=== PATIENT | female | born 1970 | race Hispanic/Latino ===

== ENCOUNTER 2019-09-19 21:55 | Inpatient (IN) | payer OTHER ==
[~2019-09-19] VITALS: Ht 157.5 cm; Wt 113.9 kg
[~2019-09-19 21:55] MED LIST: ATOR20TA65 PO; INSU3INS5 SQ; LISI2.5T2 PO; METO5 PO
[2019-09-19 22:13] LABS: BASOPHILS % (AUTO) 0.3 % (0.0-5.0); EOSINOPHILS % (AUTO) 1.5 % (0.0-8.0); HEMATOCRIT 37.5 % (36-48); LYMPHOCYTES % (AUTO) 30.1 % (21.0-51.0); MEAN CORPUSCULAR HEMOGLOBIN 30.2 pg (27.0-33.0); MEAN CORPUSCULAR HGB CONC 33.6 g/dL (32.0-36.0); MEAN CORPUSCULAR VOLUME 89.9 fL (79-99); MONOCYTES % (AUTO) 9.2 % (3.0-13.0); NEUTROPHILS % (AUTO) 58.6 % (40.0-77.0); PLATELET COUNT (AUTO) 387 K/uL (130-400); RED BLOOD CELL COUNT(AUTO) 4.17 MIL/uL (4.00-5.50); WHITE BLOOD COUNT (AUTO) 7.3 K/uL (4.8-10.8)
[2019-09-19 22:24] LABS: CREATININE 0.9 mg/dL (0.5-1.5)
[2019-09-19 22:29] LABS: ALBUMIN 3.9 g/dL (3.5-5.0); BILIRUBIN,TOTAL 0.2 mg/dL (0.2-1.0); TOTAL PROTEIN, SERUM 8.2 g/dL (6.0-8.3)
[2019-09-19] MEDS ORDERED: NITROGLYCERIN 1GM/1 INCH PACKET TD ONE (22:30)
[2019-09-19 22:32] LABS: HCG,QUAL RESULT NEGATIVE (NEGATIVE)
[2019-09-19 22:35] LABS: AMPHET/METH SCREEN,URINE NEGATIVE (NEGATIVE); BARBITURATE SCREEN, URINE NEGATIVE (NEGATIVE); BENZODIAZEPINES SCREEN,URINE NEGATIVE (NEGATIVE); CANNABINOID SCREEN,URINE NEGATIVE (NEGATIVE); COCAINE SCREEN,URINE NEGATIVE (NEGATIVE); OPIATE SCREEN,URINE NEGATIVE (NEGATIVE); PHENCYCLIDINE SCREEN,URINE NEGATIVE (NEGATIVE)
[2019-09-19] MEDS ORDERED: ONDANSETRON HCL 4 MG/2 ML VIAL ONE (22:35)
[2019-09-19 22:37] LABS: INR 0.92 (0.85-1.15); PARTIAL THROMBOPLASTIN TIME 22.8 SEC (26.3-35.5)
[2019-09-20] MEDS ORDERED: MORPHINE SULFATE 2 MG/ML 1ML SYG IV PRN
[2019-09-20] MEDS ORDERED: LACTULOSE 20 GM/30 ML UDCUP PO PRN
[2019-09-20] MEDS ORDERED: CLOPIDOGREL BISULFATE 300 MG TAB PO SCH
[2019-09-20] MEDS ORDERED: NITROGLYCERIN 0.4 MG SL TAB SL PRN
[2019-09-20] MEDS ORDERED: ACETAMINOPHEN 325 MG TAB PO PRN ×2
[2019-09-20] MEDS ORDERED: ONDANSETRON HCL 4 MG/2 ML VIAL IV PRN
[2019-09-20] MEDS ORDERED: HYDRALAZINE HCL 20 MG/ML VIAL IV PRN
[2019-09-20 00:34] LABS: CHOLESTEROL 279 mg/dL (<200); HDL CHOLESTEROL 41 mg/dL (35-85); LDL DIRECT 204 mg/dL (0-99); TRIGLYCERIDES 198 mg/dL (30-200)
[2019-09-20 00:42] LABS: HEMOGLOBIN A1C 8.8 % (4.0-6.0)
[2019-09-20] MEDS ORDERED: INSULIN HUMULIN R 100 UNIT/ML 3ML ONE ×2 (00:46→08:36)
[2019-09-20] MEDS ORDERED: MORPHINE SULFATE 2 MG/ML 1ML SYG ONE (03:14)
[2019-09-20 04:24] LABS: BASOPHILS % (AUTO) 0.3 % (0.0-5.0); EOSINOPHILS % (AUTO) 1.3 % (0.0-8.0); HEMATOCRIT 35.1 % (36-48); LYMPHOCYTES % (AUTO) 36.9 % (21.0-51.0); MEAN CORPUSCULAR HEMOGLOBIN 30.2 pg (27.0-33.0); MEAN CORPUSCULAR HGB CONC 33.3 g/dL (32.0-36.0); MEAN CORPUSCULAR VOLUME 90.5 fL (79-99); MONOCYTES % (AUTO) 9.7 % (3.0-13.0); NEUTROPHILS % (AUTO) 51.7 % (40.0-77.0); PLATELET COUNT (AUTO) 383 K/uL (130-400); RED BLOOD CELL COUNT(AUTO) 3.88 MIL/uL (4.00-5.50); WHITE BLOOD COUNT (AUTO) 7.4 K/uL (4.8-10.8)
[2019-09-20 04:44] LABS: CREATININE 0.6 mg/dL (0.5-1.5); POTASSIUM 4.3 mmol/L (3.5-5.1)
[2019-09-20] MEDS: INSULIN HUMULIN R 100 UNIT/ML 3ML SQ SCH ×4 (07:30→21:07)
[2019-09-20] MEDS: METOPROLOL TARTRATE 25 MG TAB PO SCH ×2 (09:00→21:05)
[2019-09-20] MEDS ORDERED: ENOXAPARIN SODIUM 40 MG/0.4 ML SYRINGE SQ SCH (09:00)
[2019-09-20] MEDS ORDERED: SODIUM CHLORIDE 0.9% 500ML 500 ML IV SCH (10:02)
[2019-09-20] MEDS ORDERED: PREDNISONE 20 MG TABLET PO SCH ×2 (10:15→17:00)
[2019-09-20] MEDS ORDERED: TICAGRELOR 90 MG TABLET PO SCH (10:15)
[2019-09-20] MEDS ORDERED: METHYLPREDNISOLONE SOD SUCC 125MG/2ML VIAL IVP PRN (10:15)
[2019-09-20] MEDS ORDERED: DiphenhydrAMINE HCL 50 MG/ML VIAL IVP PRN (10:15)
[2019-09-20 10:32] LABS: HEMOGLOBIN A1C 9.2 % (4.0-6.0)
[2019-09-20] MEDS ORDERED: TICAGRELOR 90 MG TABLET ONE (10:56)
[2019-09-20] MEDS ORDERED: PREDNISONE 20 MG TABLET ONE (13:12)
[2019-09-20] MEDS ORDERED: LEVO50 PO (13:56)
[2019-09-20 14:00] VITALS: BP 136/79
[2019-09-20 20:32] VITALS: BP 142/87
[2019-09-20] MEDS: TICAGRELOR 90 MG TABLET PO SCH (21:01)
[2019-09-20] MEDS: INSULIN GLARGINE 100 UNITS/ML 10 ML VIAL SQ SCH (21:08)
[2019-09-21] VITALS (14 sets, daily range): BP systolic 99–148; BP diastolic 48–79
[2019-09-21 04:59] LABS: BASOPHILS % (AUTO) 0.1 % (0.0-5.0); HEMATOCRIT 36.8 % (36-48); LYMPHOCYTES % (AUTO) 13.1 % (21.0-51.0); MEAN CORPUSCULAR HEMOGLOBIN 29.6 pg (27.0-33.0); MEAN CORPUSCULAR HGB CONC 32.6 g/dL (32.0-36.0); MEAN CORPUSCULAR VOLUME 90.9 fL (79-99); MONOCYTES % (AUTO) 2.4 % (3.0-13.0); NEUTROPHILS % (AUTO) 84.1 % (40.0-77.0); PLATELET COUNT (AUTO) 400 K/uL (130-400); RED BLOOD CELL COUNT(AUTO) 4.05 MIL/uL (4.00-5.50); WHITE BLOOD COUNT (AUTO) 9.3 K/uL (4.8-10.8)
[2019-09-21 05:36] LABS: ALBUMIN 3.4 g/dL (3.5-5.0); BILIRUBIN,TOTAL 0.4 mg/dL (0.2-1.0); CREATININE 0.7 mg/dL (0.5-1.5); POTASSIUM 3.9 mmol/L (3.5-5.1); TOTAL PROTEIN, SERUM 7.8 g/dL (6.0-8.3)
[2019-09-21] MEDS: INSULIN HUMULIN R 100 UNIT/ML 3ML SQ SCH ×4 (05:56→21:11)
--- NOTE | 2019-09-21 07:45 | NUR ---
AM ASSESSMENT PT LAYING IN BED, WATCHING TV. A/O X 3. NO SOB. NO DISTRESS NOTED. DENIES CHEST PAIN OR DISCOMFORT. DENIES PALPITATIONS. TELE: SR. DENIES N/V AND/OR DIARRHEA. NPO STATUS REINFORCED. PT TO HAVE [facility] TODAY BY DR GARCIA. UP W/ASSISTANCE. INSTRUCTED TO CALL FOR ASSISTANCE. CALL ERIC W/IN REACH.
[2019-09-21] MEDS: TICAGRELOR 90 MG TABLET PO SCH (09:00)
[2019-09-21] MEDS: METOPROLOL TARTRATE 25 MG TAB PO SCH ×2 (09:00→21:08)
[2019-09-21] MEDS ORDERED: SODIUM BICARB 50MEQ 50ML VIAL ONE (16:44)
[2019-09-21] MEDS ORDERED: FENTANYL CITRATE PF 50 MCG/1 ML 2ML VIAL ONE (16:44)
[2019-09-21] MEDS ORDERED: MIDAZOLAM HCL 1 MG/ML 2ML VIAL ONE (16:44)
[2019-09-21] MEDS ORDERED: IOHEXOL-350 50ML VIAL IV ONE ×2 (16:44→17:53)
[2019-09-21] MEDS ORDERED: LIDOCAINE HCL 2% 20ML ONE (16:44)
[2019-09-21] MEDS ORDERED: IOHEXOL 350 MG/ML 100ML INFUS..BTL IV ONE (16:44)
[2019-09-21] MEDS ORDERED: NITROGLYCERIN 2 MG/VIAL VIAL IV ONE (16:45)
[2019-09-21] MEDS ORDERED: NICARDIPINE HCL 25 MG/10 ML ML IV ONE (16:45)
--- NOTE | 2019-09-21 16:50 | NUR ---
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 TELE BLADIMIR REMOVED. PREMEDICATION GIVEN.
[2019-09-21] MEDS ORDERED: BIVALIRUDIN 250 MG/VIAL IV ONE (17:24)
[2019-09-21] MEDS ORDERED: HEPARIN SODIUM 1000UNIT/ML 10ML VIAL ONE (17:39)
[2019-09-21] MEDS: INSULIN GLARGINE 100 UNITS/ML 10 ML VIAL SQ SCH (21:09)
--- NOTE | 2019-09-21 23:10 | NUR ---
TR BAND S/P LEFT HEART CATH; TR BAND WAS REMOVED PER PROTOCOL; SITE WITHOUT BLEEDING, PRESSURE DRESSING WAS APPLIED. PATIENT WAS INSTRUCTED TO NOTIFY NURSE IF SITE BEGAN BLEEDING.
[2019-09-22] VITALS (40 sets, daily range): BP systolic 98–137; BP diastolic 43–74
[2019-09-22 04:19] LABS: BASOPHILS % (AUTO) 0.1 % (0.0-5.0); EOSINOPHILS % (AUTO) 0.1 % (0.0-8.0); HEMATOCRIT 37.6 % (36-48); LYMPHOCYTES % (AUTO) 10.6 % (21.0-51.0); MEAN CORPUSCULAR HEMOGLOBIN 30.5 pg (27.0-33.0); MEAN CORPUSCULAR HGB CONC 33.5 g/dL (32.0-36.0); MONOCYTES % (AUTO) 1.4 % (3.0-13.0); NEUTROPHILS % (AUTO) 87.3 % (40.0-77.0); PLATELET COUNT (AUTO) 430 K/uL (130-400); RED BLOOD CELL COUNT(AUTO) 4.13 MIL/uL (4.00-5.50); RED CELL DISTRIBUTION WIDTH 11.9 % (11.0-15.5); WHITE BLOOD COUNT (AUTO) 11.2 K/uL (4.8-10.8)
[2019-09-22 04:26] LABS: INR 0.97 (0.85-1.15); PARTIAL THROMBOPLASTIN TIME 22.6 SEC (26.3-35.5); PROTHROMBIN TIME 10.5 SEC (9.6-11.6)
[2019-09-22 04:29] LABS: ALBUMIN 3.5 g/dL (3.5-5.0); BILIRUBIN,TOTAL 0.3 mg/dL (0.2-1.0); CREATININE 0.9 mg/dL (0.5-1.5); POTASSIUM 3.7 mmol/L (3.5-5.1); TOTAL PROTEIN, SERUM 8.1 g/dL (6.0-8.3)
[2019-09-22 04:43] LABS: B-TYPE NATRIURETIC PEPTIDE 40 pg/mL (0-100)
[2019-09-22] MEDS: INSULIN HUMULIN R 100 UNIT/ML 3ML SQ SCH (06:22)
--- NOTE | 2019-09-22 07:45 | NUR ---
AM ASSESSMENT PT LAYING IN BED, RESTING. ANXIOUS, PENDING TO HAVE CABG TODAY. A/O X 3. NO SOB. NO DISTRESS NOTED. DENIES CHEST PAIN OR DISCOMFORT. DENIES PALPITATIONS. TELE: SR. RT PUNCTURE SITE SOFT, NON-TENDER. NO BLEEDING, NO HEMATOMA NOTED. (+) CAPILLARY REFILL. RUE PINK & WARM TO TOUCH. DENIES N/V AND/OR DIARRHEA. LAST BM 09/18. PT STATES HAVING HX OF GASTROPARESIS & TAKING STOOL SOFTENER BID. (+) FLATUS. UP W/ASSISTANCE. INSTRUCTED TO RAMIREZ FOR ASSISTANCE. CALL ERIC W/IN REACH.
[2019-09-22] MEDS: METOPROLOL TARTRATE 25 MG TAB PO SCH (08:14)
[2019-09-22] MEDS ORDERED: NOREPINEPHRINE BITARTRATE 8 MG in DEXTROSE 5%-WATER 250 ML IV PRN (11:45)
[2019-09-22] MEDS ORDERED: EPINEPHRINE 10 MG in SODIUM CHLORIDE 0.9% 240 ML IV PRN (11:45)
[2019-09-22] MEDS ORDERED: AMINOCAPROIC ACID 15,000 MG in SODIUM CHLORIDE 0.9% 500ML 420 ML IV PRN (11:45)
[2019-09-22] MEDS ORDERED: NITROGLYCERIN 50 MG/D5% WATER 1 BOT ONE (12:17)
[2019-09-22] MEDS: CLINDAMYCIN 900 MG/D5% WATER 50 ML IV SCH ×2 (13:30→14:50)
--- NOTE | 2019-09-22 13:45 | NUR ---
CM NOTE/IA UNSUCCESSFUL UNABLE TO COMPLETE IA, PATIENT TAKEN DOWN TO OR FOR SCHEDULED PROCEDURE. Addendum: 09/22/19 at 1559 by KOE GUZMAN RN CM Amended: Links added.
[2019-09-22] MEDS ORDERED: PROTAMINE SULFATE 10 MG/ML 25ML VIAL IV ONE (14:05)
[2019-09-22] MEDS ORDERED: FENTANYL CITRATE PF 50 MCG/1 ML 20ML VIAL IJ ONE (14:05)
[2019-09-22] MEDS ORDERED: LIDOCAINE PF 2% 5ML ABBOJECT ONE (14:05)
[2019-09-22] MEDS ORDERED: AMINOCAPROIC ACID 250 MG/ML 20 ML VIAL IV ONE (14:05)
[2019-09-22] MEDS ORDERED: NOREPINEPHRINE BITARTRATE 1 MG/1 ML ML IV ONE ×2 (14:05→23:49)
[2019-09-22] MEDS ORDERED: HEPARIN SODIUM 1000UNIT/ML 10ML VIAL ONE ×2 (14:05→14:07)
[2019-09-22] MEDS ORDERED: SODIUM BICARB 50MEQ 50ML VIAL ONE ×2 (14:05→16:38)
[2019-09-22] MEDS ORDERED: ESMOLOL HCL 10 MG/ML 10 ML VIAL ONE (14:05)
[2019-09-22] MEDS ORDERED: EPINEPHRINE 1 MG/ML AMPULE ONE (14:05)
[2019-09-22] MEDS ORDERED: PROPOFOL 10 MG/ML 20ML VIAL IV ONE (14:06)
[2019-09-22] MEDS ORDERED: ROCURONIUM 10MG/1ML SYR 10 MG/ML ML ONE (14:06)
[2019-09-22] MEDS ORDERED: MIDAZOLAM HCL 1 MG/ML 2ML VIAL ONE (14:06)
[2019-09-22] MEDS ORDERED: KETAMINE 50MG/ML SYRINGE 50 MG/ML DISP.SYRIN IV ONE (14:07)
[2019-09-22] MEDS ORDERED: SODIUM CHLORIDE 0.9% 1000ML 1,000 ML IV ONE (14:21)
--- NOTE | 2019-09-22 14:30 | NUR ---
STATUS PT TAKEN TO PRE-OP HOLDING FOR CABG. TELE BLADIMIR REMOVED. PERSONAL BELONGINGS TO BE TURNED IN TO SECURITY. SECURITY ALREADY NOTIFIED.
[2019-09-22] MEDS ORDERED: CLINDAMYCIN PHOSPHATE 150 MG/ML 6ML VIAL ONE (15:19)
[2019-09-22] MEDS ORDERED: OCTYL 2-CYANOACRYLATE 1 EACH TP ONE (15:19)
[2019-09-22] MEDS ORDERED: PAPAVERINE HCL 30 MG/ML 2ML VIAL ONE (15:19)
[2019-09-22 15:35] LABS: ABG BASE EXCESS -0.8 mmol/L (-2.0-3.0); ABG HCO3 23.3 mmol/L (21.0-28.0); ABG OXYGEN SATURATION 99.2 % (95.0-99.0); ABG PCO2 37 mmHg (32-45)
[2019-09-22] MEDS ORDERED: SODIUM CHLORIDE 0.9% 500ML 500 ML IV SCH (17:02)
[2019-09-22] MEDS ORDERED: NITROGLYCERIN 50 MG/D5% WATER 250 BOT IV SCH (17:15)
[2019-09-22] MEDS ORDERED: MORPHINE SULFATE 4 MG/1ML SYG IV PRN (17:15)
[2019-09-22] MEDS ORDERED: ALBUMIN (HUMAN) 5% 250 ML IV PRN (17:15)
[2019-09-22] MEDS ORDERED: ACETAMINOPHEN 650 MG SUPPOSITORY RC PRN (17:15)
[2019-09-22] MEDS ORDERED: ACETAMINOPHEN 325 MG TAB PO PRN (17:15)
[2019-09-22] MEDS ORDERED: EPINEPHRINE 10 MG in DEXTROSE 5%-WATER 250 ML IV PRN (17:15)
[2019-09-22] MEDS ORDERED: SODIUM CHLORIDE 0.9% 1000ML 1,000 ML IV SCH (17:15)
[2019-09-22] MEDS ORDERED: DEXTROSE 50%-WATER 50 ML DISP.SYRIN IV PRN (17:15)
[2019-09-22] MEDS ORDERED: SODIUM CHLORIDE 0.9% 10 ML VIAL IVP PRN (17:15)
[2019-09-22] MEDS ORDERED: POTASSIUM PHOS 15 mMOL+NS250ML 250 ML IV PRN (17:15)
[2019-09-22] MEDS ORDERED: NOREPINEPHRINE 4MG/NS 250ML 250 ML IV PRN (17:15)
[2019-09-22] MEDS ORDERED: AMINOCAPROIC ACID 15,000 MG in SODIUM CHLORIDE 0.9% 250 ML IV SCH (17:15)
[2019-09-22] MEDS ORDERED: GLUCAGON 1MG KIT 1 MG ML IM PRN (17:15)
[2019-09-22] MEDS ORDERED: MORPHINE SULFATE 2 MG/ML 1ML SYG IV PRN (17:15)
[2019-09-22] MEDS ORDERED: INSULIN REGULAR, HUMAN 3ML 100 UNIT in SODIUM CHLORIDE 0.9% 99 ML IV SCH ×2 (17:15)
[2019-09-22] MEDS ORDERED: PROPOFOL 1000 MG/100 ML 100 ML IV PRN (17:15)
[2019-09-22 17:18] LABS: ABG BASE EXCESS -8.4 mmol/L (-2.0-3.0); ABG HCO3 17.1 mmol/L (21.0-28.0); ABG PCO2 35 mmHg (32-45)
[2019-09-22 18:01] LABS: ABG BASE EXCESS -4.4 mmol/L (-2.0-3.0); ABG HCO3 21.5 mmol/L (21.0-28.0); ABG OXYGEN SATURATION 94.3 % (95.0-99.0); ABG PCO2 43 mmHg (32-45)
[2019-09-22 18:07] LABS: HEMATOCRIT 31.8 % (36-48); MEAN CORPUSCULAR HEMOGLOBIN 30.9 pg (27.0-33.0); MEAN CORPUSCULAR HGB CONC 33.6 g/dL (32.0-36.0); MEAN CORPUSCULAR VOLUME 91.9 fL (79-99); RED BLOOD CELL COUNT(AUTO) 3.46 MIL/uL (4.00-5.50); RED CELL DISTRIBUTION WIDTH 12.1 % (11.0-15.5); WHITE BLOOD COUNT (AUTO) 24.4 K/uL (4.8-10.8)
[2019-09-22 18:20] LABS: INR 1.09 (0.85-1.15); PARTIAL THROMBOPLASTIN TIME 20.6 SEC (26.3-35.5); PROTHROMBIN TIME 11.7 SEC (9.6-11.6)
[2019-09-22 18:23] LABS: CREATININE 0.9 mg/dL (0.5-1.5); PHOSPHORUS 4.8 mg/dL (2.5-4.9)
[2019-09-22] MEDS: POTASSIUM CHLORIDE 20MEQ/100ML 100 ML IV PRN ×3 (18:37→23:05)
[2019-09-22] MEDS: SODIUM BICARB 50MEQ 50ML VIAL IV PRN ×5 (18:38→23:07)
[2019-09-22 20:03] LABS: ABG BASE EXCESS -5.9 mmol/L (-2.0-3.0); ABG HCO3 19.4 mmol/L (21.0-28.0); ABG OXYGEN SATURATION 95.8 % (95.0-99.0); ABG PCO2 38 mmHg (32-45)
[2019-09-22] MEDS: FAMOTIDINE/PF 20 MG/2 ML VIAL IV SCH (20:09)
[2019-09-22 21:10] LABS: MAGNESIUM 1.8 mg/dL (1.80-2.40); POTASSIUM 3.1 mmol/L (3.5-5.1)
[2019-09-22] MEDS: MAGNESIUM 2GM PREMIX 50ML 50 ML IV PRN (21:14)
[2019-09-22] MEDS: CALCIUM GLUCONATE 1 GM in SODIUM CHLORIDE 0.9% 50 ML IV PRN ×2 (21:15→23:06)
[2019-09-22 21:53] LABS: ABG BASE EXCESS -2.2 mmol/L (-2.0-3.0); ABG HCO3 22.3 mmol/L (21.0-28.0); ABG OXYGEN SATURATION 98.4 % (95.0-99.0); ABG PCO2 37 mmHg (32-45)
[2019-09-22] MEDS: ONDANSETRON HCL 4 MG/2 ML VIAL IV PRN (23:06)
[2019-09-22 23:44] LABS: ABG BASE EXCESS 1.3 mmol/L (-2.0-3.0); ABG HCO3 25.6 mmol/L (21.0-28.0); ABG OXYGEN SATURATION 96.7 % (95.0-99.0); ABG PCO2 39 mmHg (32-45)
[2019-09-23] VITALS (45 sets, daily range): BP systolic 85–149; BP diastolic 46–81
[2019-09-23] MEDS ORDERED: CALCIUM GLUCONATE 1 GM/10 ML VIAL IV ONE
[2019-09-23] MEDS: POTASSIUM CHLORIDE 20MEQ/100ML 100 ML IV PRN (00:10)
[2019-09-23] MEDS: TRAMADOL HCL 50 MG TABLET PO PRN ×2 (00:27→18:28)
[2019-09-23 01:11] LABS: ABG HCO3 27.6 mmol/L (21.0-28.0); ABG OXYGEN SATURATION 96.5 % (95.0-99.0); ABG PCO2 42 mmHg (32-45)
[2019-09-23] MEDS: CLINDAMYCIN 900 MG/D5% WATER 50 ML IV SCH ×3 (02:22→18:36)
[2019-09-23] MEDS: KETOROLAC TROMETHAMINE 30MG/ML IV PRN (02:23)
[2019-09-23] MEDS ORDERED: SODIUM CHLORIDE 0.9% 100 ML IV ONE (03:09)
[2019-09-23 05:01] LABS: ABG BASE EXCESS 6.1 mmol/L (-2.0-3.0); ABG HCO3 30.8 mmol/L (21.0-28.0); ABG OXYGEN SATURATION 94.2 % (95.0-99.0); ABG PCO2 44 mmHg (32-45)
[2019-09-23 05:19] LABS: BASOPHILS % (AUTO) 0.1 % (0.0-5.0); EOSINOPHILS % (AUTO) 1.5 % (0.0-8.0); HEMATOCRIT 29.4 % (36-48); LYMPHOCYTES % (AUTO) 13.8 % (21.0-51.0); MEAN CORPUSCULAR HEMOGLOBIN 30.2 pg (27.0-33.0); MEAN CORPUSCULAR HGB CONC 33.3 g/dL (32.0-36.0); MEAN CORPUSCULAR VOLUME 90.7 fL (79-99); MONOCYTES % (AUTO) 21.3 % (3.0-13.0); PLATELET COUNT (AUTO) 357 K/uL (130-400); RED BLOOD CELL COUNT(AUTO) 3.24 MIL/uL (4.00-5.50); RED CELL DISTRIBUTION WIDTH 12.2 % (11.0-15.5); WHITE BLOOD COUNT (AUTO) 9.2 K/uL (4.8-10.8)
[2019-09-23 05:34] LABS: INR 1.01 (0.85-1.15); PARTIAL THROMBOPLASTIN TIME 20.8 SEC (26.3-35.5); PROTHROMBIN TIME 10.9 SEC (9.6-11.6)
[2019-09-23 05:39] LABS: BILIRUBIN,TOTAL 0.4 mg/dL (0.2-1.0); CREATININE 0.9 mg/dL (0.5-1.5); PHOSPHORUS 2.3 mg/dL (2.5-4.9); POTASSIUM 3.4 mmol/L (3.5-5.1); TOTAL PROTEIN, SERUM 6.2 g/dL (6.0-8.3)
[2019-09-23] MEDS ORDERED: PHARMACY COMMUNICATION MISC SCH (06:15)
[2019-09-23 06:59] LABS: ABG BASE EXCESS 7.3 mmol/L (-2.0-3.0); ABG HCO3 32.5 mmol/L (21.0-28.0); ABG PCO2 48 mmHg (32-45)
[2019-09-23] MEDS ORDERED: SODIUM CHLORIDE 3% FOR INHALATION 4 ML/AMP VIAL.NEB IH ONE ×2 (07:29→11:44)
[2019-09-23] MEDS: FAMOTIDINE/PF 20 MG/2 ML VIAL IV SCH (08:00)
[2019-09-23] MEDS: LEVOFLOXACIN 500 MG TABLET PO SCH (09:08)
--- NOTE | 2019-09-23 09:16 | NUR ---
DC Plan Patient currently lying in bed. [facility] will discuss dc planning with CM. Patient lives with son and grandchildren. Denies any HH, DME, or provider services. [facility] has 2 steps to get in/out of home without hand railing. Patient feels safe returning home and will have plenty of support from family (son, grandkids, sisters) and boyfriend. CD Addendum: 09/23/19 at 0920 by ROSANNE ORTIZ CM Amended: Links added.
--- NOTE | 2019-09-23 11:30 | NUR ---
PT WAS TRANSFERRED TO ROOM 217 VIA CARDIAC CHAIR AND NO PROBLEMS NOTED.
[2019-09-23] MEDS ORDERED: FAMOTIDINE 20MG TAB 20 MG TAB PO SCH (15:45)
[2019-09-23] MEDS: FAMOTIDINE 20MG TAB 20 MG TAB PO SCH (20:43)
[2019-09-24] VITALS (23 sets, daily range): BP systolic 80–170; BP diastolic 46–70
[2019-09-24] MEDS: ONDANSETRON HCL 4 MG/2 ML VIAL IV PRN ×2 (00:25→06:35)
[2019-09-24] MEDS: TRAMADOL HCL 50 MG TABLET PO PRN ×4 (00:28→21:37)
[2019-09-24] MEDS: SIMETHICONE 80 MG TAB.CHEW PO PRN ×4 (00:29→20:55)
[2019-09-24 01:38] LABS: MAGNESIUM 1.9 mg/dL (1.80-2.40); POTASSIUM 3.3 mmol/L (3.5-5.1)
[2019-09-24] MEDS: CALCIUM GLUCONATE 1 GM in SODIUM CHLORIDE 0.9% 50 ML IV PRN (02:00)
[2019-09-24] MEDS: POTASSIUM CHLORIDE 20MEQ/100ML 100 ML IV PRN ×3 (02:00→20:56)
[2019-09-24] MEDS: MAGNESIUM 2GM PREMIX 50ML 50 ML IV PRN (03:10)
[2019-09-24 06:40] LABS: MEAN CORPUSCULAR HEMOGLOBIN 30.6 pg (27.0-33.0); MEAN CORPUSCULAR HGB CONC 32.9 g/dL (32.0-36.0); RED BLOOD CELL COUNT(AUTO) 3.01 MIL/uL (4.00-5.50); RED CELL DISTRIBUTION WIDTH 12.8 % (11.0-15.5); WHITE BLOOD COUNT (AUTO) 10.2 K/uL (4.8-10.8)
[2019-09-24 07:29] LABS: MAGNESIUM 2.5 mg/dL (1.80-2.40); PHOSPHORUS 2.7 mg/dL (2.5-4.9)
[2019-09-24 07:39] LABS: CREATININE 0.7 mg/dL (0.5-1.5); POTASSIUM 3.8 mmol/L (3.5-5.1)
[2019-09-24] MEDS: FAMOTIDINE 20MG TAB 20 MG TAB PO SCH ×2 (08:24→20:55)
[2019-09-24] MEDS: LEVOFLOXACIN 500 MG TABLET PO SCH (08:56)
[2019-09-24] MEDS ORDERED: METOPROLOL TARTRATE 25 MG TAB PO SCH (09:00)
[2019-09-24] MEDS ORDERED: FUROSEMIDE 10 MG/ML 2ML VIAL IV SCH (18:00)
--- NOTE | 2019-09-24 18:00 | NUR ---
PT WAS ASSESSED PER DR. HOPKINS AND ORDERS NOTED.
[2019-09-24] MEDS: INSULIN HUMULIN R 100 UNIT/ML 3ML SQ SCH (21:41)
[2019-09-25] VITALS (42 sets, daily range): BP systolic 109–159; BP diastolic 55–91
[2019-09-25] MEDS: POTASSIUM CHLORIDE 20MEQ/100ML 100 ML IV PRN (00:48)
[2019-09-25] MEDS: SIMETHICONE 80 MG TAB.CHEW PO PRN ×4 (03:58→22:34)
[2019-09-25] MEDS: KETOROLAC TROMETHAMINE 30MG/ML IV PRN ×3 (03:59→22:34)
[2019-09-25 04:23] LABS: BASOPHILS % (AUTO) 0.3 % (0.0-5.0); EOSINOPHILS % (AUTO) 2.6 % (0.0-8.0); HEMATOCRIT 27.5 % (36-48); LYMPHOCYTES % (AUTO) 20.6 % (21.0-51.0); MEAN CORPUSCULAR HEMOGLOBIN 30.7 pg (27.0-33.0); MEAN CORPUSCULAR HGB CONC 33.1 g/dL (32.0-36.0); MEAN CORPUSCULAR VOLUME 92.9 fL (79-99); MONOCYTES % (AUTO) 8.7 % (3.0-13.0); NEUTROPHILS % (AUTO) 67.4 % (40.0-77.0); NUCLEATED RED BLOOD CELLS 0.2 % (0.0-0.19); PLATELET COUNT (AUTO) 250 K/uL (130-400); RED BLOOD CELL COUNT(AUTO) 2.96 MIL/uL (4.00-5.50); RED CELL DISTRIBUTION WIDTH 12.3 % (11.0-15.5); WHITE BLOOD COUNT (AUTO) 12.5 K/uL (4.8-10.8)
[2019-09-25 04:39] LABS: CREATININE 0.6 mg/dL (0.5-1.5); POTASSIUM 4.3 mmol/L (3.5-5.1)
[2019-09-25 04:55] LABS: MAGNESIUM 1.8 mg/dL (1.80-2.40); PHOSPHORUS 2.6 mg/dL (2.5-4.9)
[2019-09-25] MEDS: MAGNESIUM 2GM PREMIX 50ML 50 ML IV PRN (06:00)
[2019-09-25] MEDS: INSULIN HUMULIN R 100 UNIT/ML 3ML SQ SCH ×4 (07:01→23:14)
[2019-09-25] MEDS: FUROSEMIDE 20 MG TABLET PO SCH ×2 (08:16→16:55)
[2019-09-25] MEDS: LEVOFLOXACIN 500 MG TABLET PO SCH (08:16)
[2019-09-25] MEDS: FAMOTIDINE 20MG TAB 20 MG TAB PO SCH ×2 (14:11→22:33)
--- NOTE | 2019-09-25 17:00 | NUR ---
DR GARCIA AT BEDSIDE TO ASSESS PATIENT
[2019-09-26] VITALS (22 sets, daily range): BP systolic 105–142; BP diastolic 55–97
--- NOTE | 2019-09-26 04:57 | NUR ---
0345 Assisted back to bed per pt requested. Bathed. Weighed with standing scale. Tolerated well. Comfort measures done. Call light and needed items placed readily at hand. Encouraged to call prn.
[2019-09-26 05:16] LABS: BASOPHILS % (AUTO) 0.1 % (0.0-5.0); EOSINOPHILS % (AUTO) 5.4 % (0.0-8.0); HEMATOCRIT 27.8 % (36-48); LYMPHOCYTES % (AUTO) 19.6 % (21.0-51.0); MEAN CORPUSCULAR HEMOGLOBIN 30.6 pg (27.0-33.0); MEAN CORPUSCULAR HGB CONC 33.5 g/dL (32.0-36.0); MEAN CORPUSCULAR VOLUME 91.4 fL (79-99); MONOCYTES % (AUTO) 11.4 % (3.0-13.0); NEUTROPHILS % (AUTO) 63.1 % (40.0-77.0); NUCLEATED RED BLOOD CELLS 0.2 % (0.0-0.19); PLATELET COUNT (AUTO) 287 K/uL (130-400); RED BLOOD CELL COUNT(AUTO) 3.04 MIL/uL (4.00-5.50); RED CELL DISTRIBUTION WIDTH 11.8 % (11.0-15.5); WHITE BLOOD COUNT (AUTO) 8.4 K/uL (4.8-10.8)
[2019-09-26] MEDS: ONDANSETRON HCL 4 MG/2 ML VIAL IV PRN (05:32)
[2019-09-26] MEDS: INSULIN HUMULIN R 100 UNIT/ML 3ML SQ SCH ×4 (05:34→22:11)
[2019-09-26 05:42] LABS: CREATININE 0.6 mg/dL (0.5-1.5); POTASSIUM 3.4 mmol/L (3.5-5.1)
[2019-09-26] MEDS: LEVOFLOXACIN 500 MG TABLET PO SCH (08:35)
[2019-09-26] MEDS: FAMOTIDINE 20MG TAB 20 MG TAB PO SCH ×2 (08:35→21:59)
[2019-09-26] MEDS: FUROSEMIDE 20 MG TABLET PO SCH ×2 (08:35→17:03)
[2019-09-26] MEDS: POTASSIUM CHLORIDE 20MEQ/100ML 100 ML IV PRN (08:37)
--- NOTE | 2019-09-26 10:10 | NUR ---
DISCONTINUED A-LINE, CATHETER INTACT.
--- NOTE | 2019-09-26 10:30 | NUR ---
IV SITE TO LEFT FOREARM NOTED TO BE LEAKING, DISCONTINUED CATHETER INTACT. RESTARTED SL TO RT ANTERIOR FOREARM, 20 GA, X1 ATTEMPT.
--- NOTE | 2019-09-26 10:40 | NUR ---
DISCONTINUED JODI. CHEST TUBES INTACT, ASSISTED PER DAYO LEGER RN, TOLERATED PROCEDURE WELL
--- NOTE | 2019-09-26 10:50 | NUR ---
DISCONTINUED RT IJ CORDIS, CATHETER INTACT.
--- NOTE | 2019-09-26 12:30 | NUR ---
DISCONTINUED MONCADA CATHETER INTACT
--- NOTE | 2019-09-26 12:55 | NUR ---
REPORT GIVEN TO NEFTALI KWONG RN. TRANSFERRED TO ROOM 402 VIA RECLINER
[2019-09-26] MEDS ORDERED: ENOXAPARIN SODIUM 30 MG/0.3 ML SQ SCH (13:00)
--- NOTE | 2019-09-26 13:00 | NUR ---
TRANSFER FROM ICU RECEIVED UP IN CHAIR, A&OX3, CALM COOPERATIVE AND DOES NOT APPEAR TO BE IN ANY DISTRESS NOR ANY NEURO DEFICITS PRESENT. PT DENIES PAIN, SOB, NAUSEA BUT DOES C/O GENERALIZED BODY ACHES. PT IS AMBULATORY TO BATHROOM AND BACK TO CHAIR, GAIT SLOW BUT STEADY WITH ASSIST, TOLERATING WELL, CALL LIGHT WITHIN REACH.
[2019-09-26] MEDS: SIMETHICONE 80 MG TAB.CHEW PO PRN ×2 (13:50→18:31)
[2019-09-26] MEDS: KETOROLAC TROMETHAMINE 30MG/ML IV PRN (14:00)
[2019-09-26] MEDS ORDERED: ASPIRIN 325MG EC TAB 325 MG TABLET.DR PO SCH (14:15)
[2019-09-26] MEDS ORDERED: PHARMACY COMMUNICATION MISC SCH (15:00)
[2019-09-26] MEDS: METOPROLOL TARTRATE 25 MG TAB PO SCH (21:59)
[2019-09-26] MEDS: ATORVASTATIN CALCIUM 40 MG TABLET PO SCH (21:59)
[2019-09-26] MEDS: ENOXAPARIN SODIUM 30 MG/0.3 ML SQ SCH (22:00)
[2019-09-26] MEDS: TRAMADOL HCL 50 MG TABLET PO PRN (22:02)
[2019-09-27] VITALS (7 sets, daily range): BP systolic 96–126; BP diastolic 52–75
[2019-09-27 04:29] LABS: HEMATOCRIT 28.4 % (36-48); MEAN CORPUSCULAR HEMOGLOBIN 30.6 pg (27.0-33.0); MEAN CORPUSCULAR HGB CONC 33.1 g/dL (32.0-36.0); MEAN CORPUSCULAR VOLUME 92.5 fL (79-99); NUCLEATED RED BLOOD CELLS 0.5 % (0.0-0.19); PLATELET COUNT (AUTO) 326 K/uL (130-400); RED BLOOD CELL COUNT(AUTO) 3.07 MIL/uL (4.00-5.50); RED CELL DISTRIBUTION WIDTH 12.3 % (11.0-15.5); WHITE BLOOD COUNT (AUTO) 8.7 K/uL (4.8-10.8)
[2019-09-27 04:35] LABS: CREATININE 0.8 mg/dL (0.5-1.5); POTASSIUM 3.6 mmol/L (3.5-5.1)
[2019-09-27 05:14] LABS: BAND NEUTROPHILS % (MANUAL) 6 % (0-2); EOSINOPHILS % (MANUAL) 5 % (1-6); LYMPHOCYTES % (MANUAL) 16 % (22-44); MAN.DIFF COMMENT-IMPRESSION MANUAL DIFFERENTIAL; MONOCYTES % (MANUAL) 14 % (2-9); PLATELET MORPHOLOGY COMMENT ADEQUATE; SEGMENTED NEUTROPHILS % 59 % (40-70)
[2019-09-27] MEDS: INSULIN HUMULIN R 100 UNIT/ML 3ML SQ SCH ×4 (05:50→20:47)
--- NOTE | 2019-09-27 07:35 | NUR ---
ASSESSMENT ENCOUNTERED PT A&OX3, CALM COOPERATIVE AND DOES NOT APPEAR TO BE IN ANY DISTRESS NOR ANY NEURO DEFICITS PRESENT. PT DOES C/O INCISIONAL DISCOMFORT, STERNAL AND CHEST TUBE INCISION SITES DRY AND INTACT, INCENTIVE SPIROMETER AVERAGE IS 1250, PT DENIES NAUSEA, SOB, NAUSEA. PT IS AMBULATORY, GAIT SLOW BUT STEADY WITH STAND BY ASSIST. CALL LIGHT WITHIN REACH.
[2019-09-27] MEDS: METOPROLOL TARTRATE 25 MG TAB PO SCH ×2 (08:45→23:08)
[2019-09-27] MEDS: LEVOFLOXACIN 500 MG TABLET PO SCH (08:45)
[2019-09-27] MEDS: FAMOTIDINE 20MG TAB 20 MG TAB PO SCH ×2 (08:45→18:07)
[2019-09-27] MEDS: FUROSEMIDE 20 MG TABLET PO SCH ×2 (08:46→16:50)
[2019-09-27] MEDS ORDERED: ASPIRIN 325MG EC TAB 325 MG TABLET.DR PO SCH (09:00)
[2019-09-27] MEDS: CLOPIDOGREL BISULFATE 75 MG TAB PO SCH (10:28)
[2019-09-27] MEDS: ATORVASTATIN CALCIUM 40 MG TABLET PO SCH (21:03)
[2019-09-27] MEDS: ENOXAPARIN SODIUM 30 MG/0.3 ML SQ SCH (21:04)
[2019-09-28 03:49] VITALS: BP 107/59
[2019-09-28 04:19] LABS: BASOPHILS % (AUTO) 0.4 % (0.0-5.0); EOSINOPHILS % (AUTO) 4.9 % (0.0-8.0); HEMATOCRIT 29.4 % (36-48); LYMPHOCYTES % (AUTO) 25.2 % (21.0-51.0); MEAN CORPUSCULAR HEMOGLOBIN 30.3 pg (27.0-33.0); MEAN CORPUSCULAR VOLUME 91.9 fL (79-99); MONOCYTES % (AUTO) 12.7 % (3.0-13.0); NEUTROPHILS % (AUTO) 55.3 % (40.0-77.0); NUCLEATED RED BLOOD CELLS 0.9 % (0.0-0.19); PLATELET COUNT (AUTO) 347 K/uL (130-400); RED CELL DISTRIBUTION WIDTH 12.3 % (11.0-15.5); WHITE BLOOD COUNT (AUTO) 9.2 K/uL (4.8-10.8)
[2019-09-28] MEDS: INSULIN HUMULIN R 100 UNIT/ML 3ML SQ SCH ×3 (06:58→16:30)
[2019-09-28] MEDS: FUROSEMIDE 20 MG TABLET PO SCH ×2 (07:20→16:25)
[2019-09-28] MEDS: METOPROLOL TARTRATE 25 MG TAB PO SCH (07:21)
[2019-09-28] MEDS: CLOPIDOGREL BISULFATE 75 MG TAB PO SCH (07:21)
[2019-09-28] MEDS: FAMOTIDINE 20MG TAB 20 MG TAB PO SCH (07:21)
[2019-09-28] MEDS: LEVOFLOXACIN 500 MG TABLET PO SCH (07:21)
[2019-09-28] MEDS ORDERED: DOCUSATE SODIUM 100 MG CAP PO ONE (07:25)
[2019-09-28 08:00] VITALS: BP 121/82
--- NOTE | 2019-09-28 08:00 | NUR ---
ASSESSMENT PT IS AAOX3 DENIES CP DENIES SOB DENIES NV AT THIS TIME, RESTING SITTING UP IN CHAIR. NO VISIBLE SIGNS OF DISTRESS NOTED. ENCOURAGED COUGH AND DEEP BREATHING WITH HEART PILLOW SPLINTING AND USE OF IS 10XS Q1HR. CALL LIGHT WITHIN REACH.
--- NOTE | 2019-09-28 08:30 | NUR ---
DR VILLEDA ROUNDED SAW PT ORDERS RECEIVED
--- NOTE | 2019-09-28 09:10 | NUR ---
HR VIA TELE WHILE AMBULATING ST 120S BACK TO CHAIR. NO COMPLAINTS. CONTINUING TO MONITOR.
[2019-09-28 12:55] VITALS: BP 91/52
[2019-09-28 13:30] VITALS: BP 121/55
--- NOTE | 2019-09-28 13:59 | NUR ---
METOPROLOL TID PO GIVEN BP 121/55 HR 90S-100S.
[2019-09-28] MEDS ORDERED: METOPROLOL TARTRATE 25 MG TAB PO SCH (14:00)
--- NOTE | 2019-09-28 15:00 | NUR ---
DR GARCIA ROUNDED OK TO [place] HOME
[2019-09-28] MEDS ORDERED: CLOP75TA14 PO (16:36)
[2019-09-28] MEDS ORDERED: ATOR40TA69 PO (16:36)
[2019-09-28] MEDS ORDERED: LEVO500T2 PO (16:36)
[2019-09-28] MEDS ORDERED: METO25 PO (16:36)
[2019-09-28] MEDS ORDERED: FAMO20TA8 PO (16:36)
[2019-09-28] MEDS ORDERED: FURO20TA6 PO (16:36)
--- NOTE | 2019-09-28 17:47 | NUR ---
DISCHARGE PT VERBALIZES ALL DC INSTRUCTIONS UNDERSTANDING AGREE TO TAKE MEDS ORDERED AND FOLLOW UP WITH [facility] ORDERED. ALL QUESTIONS ANSWERED, PIV REMOVED CATH TIP INTACT TELE PACK REMOVED ALL BELONGINGS GATHERED, AWAITING RIDE.
--- NOTE | 2019-09-28 17:57 | NUR ---
DOWN TO EXIT / VEHICLE VIA WC WITH NURSE AIDE
== END 2019-09-28 18:30 | disposition home or self-care (01) | DRG 233 ==
LOC: EDH 21:55 → EDHIP 09-20 00:21 → OBSVTOIN 09-20 00:21 → 4AH 09-20 14:06 → 2CV 09-22 14:42 → 2CH 09-23 13:54 → 4AH 09-26 12:56 → 4CH 09-27 17:06
PROVIDERS: ADMIT Hospitalist; ATTEND Hospitalist
PROC: B2151ZZ Fluoroscopy of Left Heart using Low Osmolar Contrast (ICD-10-PCS; principal; 2019-09-21)
PROC: B2111ZZ Fluoroscopy of Multiple Coronary Arteries using Low Osmolar Contrast (ICD-10-PCS; 2019-09-21)
PROC: 4A023N7 Measurement of Cardiac Sampling and Pressure, Left Heart, Percutaneous Approach (ICD-10-PCS; 2019-09-21)
PROC: 06BQ4ZZ Excision of Left Saphenous Vein, Percutaneous Endoscopic Approach (ICD-10-PCS; 2019-09-22)
PROC: 02100Z9 Bypass Coronary Artery, One Artery from Left Internal Mammary, Open Approach (ICD-10-PCS; 2019-09-22 13:30)
PROC: 021109W Bypass Coronary Artery, Two Arteries from Aorta with Autologous Venous Tissue, Open Approach (ICD-10-PCS; 2019-09-22 13:30)
DX: I21.4 Non-ST elevation (NSTEMI) myocardial infarction (principal); I50.31 Acute diastolic (congestive) heart failure; J95.1 Acute pulmonary insufficiency following thoracic surgery; Z68.42 Body mass index [BMI] 45.0-49.9, adult; I25.10 Atherosclerotic heart disease of native coronary artery without angina pectoris; E78.5 Hyperlipidemia, unspecified; E66.9 Obesity, unspecified; E03.9 Hypothyroidism, unspecified; E11.42 Type 2 diabetes mellitus with diabetic polyneuropathy; J45.909 Unspecified asthma, uncomplicated; I11.0 Hypertensive heart disease with heart failure; E78.00 Pure hypercholesterolemia, unspecified; F17.200 Nicotine dependence, unspecified, uncomplicated; Y83.8 Other surgical procedures as the cause of abnormal reaction of the patient, or of later complication, without mention of misadventure at the time of the procedure; Z90.49 Acquired absence of other specified parts of digestive tract; Z91.018 Allergy to other foods; Z88.6 Allergy status to analgesic agent; Z88.0 Allergy status to penicillin; Z88.8 Allergy status to other drugs, medicaments and biological substances; Z79.02 Long term (current) use of antithrombotics/antiplatelets; Z79.899 Other long term (current) drug therapy; Z82.49 Family history of ischemic heart disease and other diseases of the circulatory system
CPT/HCPCS: 36415; 71045; 80048; 80053; 80061; 80305; 81025; 82330; 82435; 82550; 82803; 82947; 82948; 83036; 83605; 83735; 83880; 84100; 84132; 84295; 84443; 84484; 85018; 85025; 85027; 85347; 85610; 85730; 86850; 86900; 86901; 86922; 87071; 87205; 93005; 93306; 93356; 93458; 93880; 94002; 94010; 94150; 94640; 94667; 94668; 97039; 99156; 99157; 99291; A7048; C1769; G0378; J0171; J0583; J0610; J1200; J1644; J1650; J1815; J1885; J1940; J2001; J2250; J2405; J2440; J2704; J2720; J2930; J3010; J3475; J3480; J3490; J7030; J7040; J7060; P9045; Q9967

== ENCOUNTER → 2019-10-13 | Outpatient (CLI) | payer OTHER ==
[~2019-10-13] MED LIST changes: +APIX5TAB PO; +ATOR40TA69 PO; +CLOP75TA14 PO; +FAMO20TA8 PO; +FURO20TA6 PO; +FURO40TA7 PO; +LEVO50 PO; +LEVO500T2 PO; -LISI2.5T2 PO; +METO25 PO; -METO5 PO
[2019-10-13 16:23] LABS: CREATININE 0.8 mg/dL (0.5-1.5); POTASSIUM 3.9 mmol/L (3.5-5.1)
== END | disposition home or self-care (01) ==
LOC: LAB 15:23
PROVIDERS: ATTEND Internal Medicine Cardiovascular Disease
DX: I21.3 ST elevation (STEMI) myocardial infarction of unspecified site (principal); R00.2 Palpitations; I95.9 Hypotension, unspecified; R06.01 Orthopnea
CPT/HCPCS: 36415; 80048; 83880

== ENCOUNTER → 2019-10-15 | Outpatient (CLI) | payer OTHER ==
[~2019-10-15] MED LIST changes: +IOHEXOL-350 75 ML VIAL IV ONE
== END | disposition home or self-care (01) ==
LOC: RAH 08:17
PROVIDERS: ATTEND Internal Medicine Cardiovascular Disease
DX: J98.11 Atelectasis (principal); J90 Pleural effusion, not elsewhere classified; I21.3 ST elevation (STEMI) myocardial infarction of unspecified site; R00.0 Tachycardia, unspecified; R00.2 Palpitations; Z95.1 Presence of aortocoronary bypass graft
CPT/HCPCS: 71275; 93306; 93356; Q9967

== ENCOUNTER 2019-10-18 23:17 | Inpatient (IN) | payer OTHER ==
[~2019-10-18] VITALS: Ht 154.9 cm; Wt 106.0 kg
[~2019-10-18 23:17] MED LIST changes: -APIX5TAB PO; -FURO40TA7 PO; -IOHEXOL-350 75 ML VIAL IV ONE
[2019-10-18 23:38] LABS: BASOPHILS % (AUTO) 0.4 % (0.0-5.0); EOSINOPHILS % (AUTO) 7.3 % (0.0-8.0); HEMATOCRIT 38.4 % (36-48); MEAN CORPUSCULAR HEMOGLOBIN 30.7 pg (27.0-33.0); MEAN CORPUSCULAR HGB CONC 34.1 g/dL (32.0-36.0); MEAN CORPUSCULAR VOLUME 89.9 fL (79-99); MONOCYTES % (AUTO) 10.3 % (3.0-13.0); PLATELET COUNT (AUTO) 345 K/uL (130-400); RED BLOOD CELL COUNT(AUTO) 4.27 MIL/uL (4.00-5.50); RED CELL DISTRIBUTION WIDTH 12.7 % (11.0-15.5); WHITE BLOOD COUNT (AUTO) 6.7 K/uL (4.8-10.8)
[2019-10-18] MEDS ORDERED: ONDANSETRON HCL 4 MG/2 ML VIAL ONE (23:46)
[2019-10-18] MEDS ORDERED: NITROGLYCERIN 1GM/1 INCH PACKET TD ONE (23:46)
[2019-10-18] MEDS ORDERED: MORPHINE SULFATE 2 MG/ML 1ML SYG ONE (23:47)
[2019-10-19] MEDS ORDERED: SODIUM CHLORIDE 0.9% 100 ML IV ONE (00:01)
[2019-10-19 00:04] LABS: INR 1.04 (0.85-1.15); PARTIAL THROMBOPLASTIN TIME 23.7 SEC (26.3-35.5); PROTHROMBIN TIME 11.2 SEC (9.6-11.6)
[2019-10-19 00:05] LABS: ALBUMIN 3.5 g/dL (3.5-5.0); BILIRUBIN,TOTAL 0.4 mg/dL (0.2-1.0); TOTAL PROTEIN, SERUM 8.2 g/dL (6.0-8.3)
[2019-10-19 00:08] LABS: POTASSIUM 2.6 mmol/L (3.5-5.1)
[2019-10-19 00:12] LABS: B-TYPE NATRIURETIC PEPTIDE 133 pg/mL (0-100)
[2019-10-19] MEDS ORDERED: POTASSIUM CHLORIDE 20 MEQ ERTAB PO ONE (00:17)
[2019-10-19] MEDS ORDERED: MAGNESIUM OXIDE 400 MG TABLET PO ONE (00:50)
[2019-10-19] MEDS ORDERED: IOHEXOL 350 MG/ML 100ML INFUS..BTL IV ONE (01:39)
[2019-10-19] MEDS ORDERED: ONDANSETRON HCL 4 MG/2 ML VIAL IV PRN (02:30)
[2019-10-19] MEDS ORDERED: GLUCAGON 1MG KIT 1 MG ML IM PRN (02:30)
[2019-10-19] MEDS ORDERED: DEXTROSE 50%-WATER 50 ML DISP.SYRIN IV PRN (02:30)
[2019-10-19] MEDS ORDERED: NITROGLYCERIN 0.4 MG SL TAB SL PRN (02:30)
[2019-10-19] MEDS ORDERED: DIPHENHYDRAMINE HCL 25 MG CAPSULE PO PRN (02:30)
[2019-10-19] MEDS ORDERED: IPRATROPIUM/ALBUTEROL SULFATE 3 ML SOLUTION IH PRN (02:30)
[2019-10-19] MEDS ORDERED: ACETAMINOPHEN 325 MG TAB PO PRN ×2 (02:30)
[2019-10-19 03:22] LABS: HEMATOCRIT 37.7 % (36-48); MEAN CORPUSCULAR HEMOGLOBIN 31.3 pg (27.0-33.0); MEAN CORPUSCULAR HGB CONC 34.7 g/dL (32.0-36.0); PLATELET COUNT (AUTO) 340 K/uL (130-400); RED BLOOD CELL COUNT(AUTO) 4.19 MIL/uL (4.00-5.50); RED CELL DISTRIBUTION WIDTH 12.8 % (11.0-15.5); WHITE BLOOD COUNT (AUTO) 7.2 K/uL (4.8-10.8)
[2019-10-19 03:29] LABS: HEMOGLOBIN A1C 8.9 % (4.0-6.0)
[2019-10-19 03:54] LABS: ALBUMIN 3.6 g/dL (3.5-5.0); BILIRUBIN,TOTAL 0.5 mg/dL (0.2-1.0); CREATININE 0.9 mg/dL (0.5-1.5); MAGNESIUM 1.8 mg/dL (1.80-2.40); POTASSIUM 3.2 mmol/L (3.5-5.1); TOTAL PROTEIN, SERUM 8.4 g/dL (6.0-8.3); TROPONIN I 0.51 ng/mL (0.00-0.06)
[2019-10-19] MEDS ORDERED: LIDOCAINE HCL-MPF 1% 2ML VIAL IJ PRN (04:45)
[2019-10-19] MEDS ORDERED: POTASSIUM CHLORIDE 20MEQ/100ML 100 ML IV PRN (04:45)
[2019-10-19] MEDS ORDERED: POTASSIUM CHLORIDE 10% ELIXIR 20 MEQ/15 ML UDCUP PO PRN (04:45)
[2019-10-19] MEDS ORDERED: ACETAMINOPHEN 325 MG TAB ONE (06:22)
[2019-10-19] MEDS: LEVOTHYROXINE 25 MCG TABLET PO SCH (06:30)
[2019-10-19] MEDS ORDERED: LEVOTHYROXINE 50 MCG TABLET PO SCH (07:02)
[2019-10-19] MEDS: INSULIN HUMULIN R 100 UNIT/ML 3ML SQ SCH ×4 (07:30→21:00)
[2019-10-19 07:44] LABS: EOSINOPHILS % (MANUAL) 1 % (1-6); LYMPHOCYTES % (MANUAL) 23 % (22-44); MAN.DIFF COMMENT-IMPRESSION MANUAL DIFFERENTIAL; MONOCYTES % (MANUAL) 11 % (2-9); PLATELET MORPHOLOGY COMMENT ADEQUATE; SEGMENTED NEUTROPHILS % 65 % (40-70)
[2019-10-19] MEDS: FUROSEMIDE 10 MG/ML 2ML VIAL IV SCH ×2 (08:00→20:54)
[2019-10-19] MEDS ORDERED: ENOXAPARIN SODIUM 120 MG/0.8ML SQ SCH (09:00)
[2019-10-19] MEDS: CLOPIDOGREL BISULFATE 75 MG TAB PO SCH (09:00)
[2019-10-19] MEDS: FAMOTIDINE 20MG TAB 20 MG TAB PO SCH ×3 (09:00→20:53)
[2019-10-19] MEDS: METOPROLOL TARTRATE 25 MG TAB PO SCH ×3 (09:00→20:53)
[2019-10-19] MEDS ORDERED: FURO40TA7 PO (10:15)
[2019-10-19 10:39] LABS: TROPONIN I 3.92 ng/mL (0.00-0.06)
[2019-10-19] MEDS ORDERED: FUROSEMIDE 10 MG/ML 2ML VIAL ONE (12:54)
[2019-10-19] MEDS ORDERED: CLOPIDOGREL BISULFATE 75 MG TAB ONE (12:54)
[2019-10-19] MEDS ORDERED: FAMOTIDINE 20MG TAB 20 MG TAB ONE (12:54)
[2019-10-19] MEDS ORDERED: METOPROLOL TARTRATE 25 MG TAB ONE (12:55)
[2019-10-19] MEDS ORDERED: ENOXAPARIN SODIUM 120 MG/0.8ML SQ ONE (12:55)
[2019-10-19] MEDS ORDERED: INSULIN HUMULIN R 100 UNIT/ML 3ML ONE (13:57)
[2019-10-19 15:53] LABS: TROPONIN I 21.18 ng/mL (0.00-0.06)
[2019-10-19 18:13] VITALS: BP 127/88
--- NOTE | 2019-10-19 18:32 | NUR ---
PT ADMITTED TO ROOM 16 DAYPATIENT. STABLE IN NO DISTRESS. DR HOPKINS HAS BEEN NOTIFIED OF ADMISSION. DR BARROW WAS NOTIFIED IN ER PER ER NURSE OSVALDO.
--- NOTE | 2019-10-19 18:44 | NUR ---
DR BRISCOE NOTIFIED OF ROOM NUMBER
--- NOTE | 2019-10-19 19:14 | NUR ---
DR BRISCOE MADE BEDSIDE ROUND. HE WILL PLACE HIS ORDERS. HAND OFF REPORT GIVEN TO DELICIA AVELAR
[2019-10-19 19:41] VITALS: BP 131/85
[2019-10-19] MEDS: ATORVASTATIN CALCIUM 40 MG TABLET PO SCH (20:53)
[2019-10-19] MEDS: APIXABAN 5 MG TABLET PO SCH (20:53)
[2019-10-19 21:42] LABS: TROPONIN I 15.55 ng/mL (0.00-0.06)
[2019-10-19 23:09] VITALS: BP 115/71
[2019-10-20 00:22] LABS: APPEARANCE,URINE Clear (CLEAR); BILIRUBIN,URINE Negative (NEGATIVE); COLOR,URINE Yellow (YELLOW); GLUCOSE, URINE (UA) Negative (NEGATIVE); KETONES,URINE Negative (NEGATIVE); LEUKOCYTE ESTERASE ,URINE Negative (NEGATIVE); NITRATE,URINE Negative (NEGATIVE); OCCULT BLOOD,URINE Negative (NEGATIVE); PH,URINE 6.5 (5.0-8.0); PROTEIN,URINE Negative (NEGATIVE)
[2019-10-20 00:31] LABS: AMPHET/METH SCREEN,URINE NEGATIVE (NEGATIVE); BARBITURATE SCREEN, URINE NEGATIVE (NEGATIVE); BENZODIAZEPINES SCREEN,URINE NEGATIVE (NEGATIVE); CANNABINOID SCREEN,URINE NEGATIVE (NEGATIVE); COCAINE SCREEN,URINE NEGATIVE (NEGATIVE); OPIATE SCREEN,URINE NEGATIVE (NEGATIVE); PHENCYCLIDINE SCREEN,URINE NEGATIVE (NEGATIVE)
[2019-10-20 03:07] VITALS: BP 120/80
[2019-10-20 04:35] LABS: BASOPHILS % (AUTO) 0.5 % (0.0-5.0); EOSINOPHILS % (AUTO) 8.7 % (0.0-8.0); HEMATOCRIT 37.4 % (36-48); LYMPHOCYTES % (AUTO) 41.2 % (21.0-51.0); MEAN CORPUSCULAR HEMOGLOBIN 30.6 pg (27.0-33.0); MEAN CORPUSCULAR HGB CONC 33.2 g/dL (32.0-36.0); MEAN CORPUSCULAR VOLUME 92.3 fL (79-99); MONOCYTES % (AUTO) 9.6 % (3.0-13.0); NEUTROPHILS % (AUTO) 39.8 % (40.0-77.0); PLATELET COUNT (AUTO) 315 K/uL (130-400); RED BLOOD CELL COUNT(AUTO) 4.05 MIL/uL (4.00-5.50); RED CELL DISTRIBUTION WIDTH 12.9 % (11.0-15.5); WHITE BLOOD COUNT (AUTO) 6.5 K/uL (4.8-10.8)
[2019-10-20 04:36] LABS: CREATININE 0.8 mg/dL (0.5-1.5); POTASSIUM 3.2 mmol/L (3.5-5.1)
[2019-10-20 05:01] LABS: B-TYPE NATRIURETIC PEPTIDE 255 pg/mL (0-100)
[2019-10-20 05:37] LABS: ABG BASE EXCESS 5.1 mmol/L (-2.0-3.0); ABG PCO2 50 mmHg (32-45)
[2019-10-20] MEDS: LEVOTHYROXINE 25 MCG TABLET PO SCH (06:11)
[2019-10-20] MEDS: INSULIN HUMULIN R 100 UNIT/ML 3ML SQ SCH ×4 (06:29→20:37)
[2019-10-20] MEDS: POTASSIUM CHLORIDE 20 MEQ ERTAB PO PRN ×2 (06:37→15:57)
[2019-10-20] MEDS: FAMOTIDINE 20MG TAB 20 MG TAB PO SCH ×2 (08:49→20:36)
[2019-10-20] MEDS: APIXABAN 5 MG TABLET PO SCH ×2 (08:49→20:36)
[2019-10-20] MEDS: METOPROLOL TARTRATE 25 MG TAB PO SCH ×3 (08:50→20:36)
[2019-10-20] MEDS: CLOPIDOGREL BISULFATE 75 MG TAB PO SCH (08:50)
[2019-10-20] MEDS: FUROSEMIDE 10 MG/ML 2ML VIAL IV SCH ×2 (08:50→16:05)
[2019-10-20 11:26] VITALS: BP 129/79
[2019-10-20] MEDS ORDERED: POTASSIUM CHLORIDE 20 MEQ ERTAB PO SCH ×2 (11:36→17:30)
[2019-10-20 15:24] VITALS: BP 120/74
--- NOTE | 2019-10-20 16:13 | NUR ---
DCP CM unable to speak to pt. Called son on facesheet, spoke to Savage Garcia discussed dc plans. Pt is independent prior to admission, lives at home w/son and [facility]. Denies any equipments/services. Feels safe to go back home, son able to assist with transportation and needs. Per son pt recently had surgery last month w/Dr Soni. Declined placement. DC plan to home once stable. CM to cont to follow up. Addendum: 10/20/19 at 1615 by DAVIAN KWONG LVN CM Amended: Links added.
[2019-10-20 19:57] VITALS: BP 115/70
[2019-10-20] MEDS: ATORVASTATIN CALCIUM 40 MG TABLET PO SCH (20:36)
[2019-10-21] VITALS: BP 106/70
[2019-10-21 04:00] VITALS: BP 99/58
[2019-10-21] MEDS: INSULIN HUMULIN R 100 UNIT/ML 3ML SQ SCH ×4 (06:12→21:46)
[2019-10-21] MEDS: LEVOTHYROXINE 25 MCG TABLET PO SCH (06:33)
[2019-10-21 07:33] LABS: BASOPHILS % (AUTO) 0.3 % (0.0-5.0); EOSINOPHILS % (AUTO) 10.2 % (0.0-8.0); HEMATOCRIT 39.4 % (36-48); LYMPHOCYTES % (AUTO) 39.5 % (21.0-51.0); MEAN CORPUSCULAR HGB CONC 32.5 g/dL (32.0-36.0); MEAN CORPUSCULAR VOLUME 92.5 fL (79-99); NEUTROPHILS % (AUTO) 39.8 % (40.0-77.0); PLATELET COUNT (AUTO) 291 K/uL (130-400); RED BLOOD CELL COUNT(AUTO) 4.26 MIL/uL (4.00-5.50); RED CELL DISTRIBUTION WIDTH 12.6 % (11.0-15.5); WHITE BLOOD COUNT (AUTO) 6.1 K/uL (4.8-10.8)
[2019-10-21] MEDS: FUROSEMIDE 10 MG/ML 2ML VIAL IV SCH ×2 (07:46→17:19)
[2019-10-21] MEDS: APIXABAN 5 MG TABLET PO SCH ×2 (07:46→21:36)
[2019-10-21] MEDS: CLOPIDOGREL BISULFATE 75 MG TAB PO SCH (07:47)
[2019-10-21] MEDS: FAMOTIDINE 20MG TAB 20 MG TAB PO SCH ×2 (07:47→21:36)
[2019-10-21] MEDS: METOPROLOL TARTRATE 25 MG TAB PO SCH ×3 (07:47→21:36)
[2019-10-21 07:55] LABS: CREATININE 0.8 mg/dL (0.5-1.5); POTASSIUM 3.6 mmol/L (3.5-5.1)
[2019-10-21 08:00] VITALS: BP 110/58
[2019-10-21 12:00] VITALS: BP 112/72
[2019-10-21 19:38] VITALS: BP 124/78
[2019-10-21] MEDS: ATORVASTATIN CALCIUM 40 MG TABLET PO SCH (21:36)
[2019-10-21 23:53] VITALS: BP 116/72
[2019-10-22 04:00] VITALS: BP 113/66
[2019-10-22 05:55] LABS: BASOPHILS % (AUTO) 0.3 % (0.0-5.0); EOSINOPHILS % (AUTO) 7.8 % (0.0-8.0); HEMATOCRIT 38.5 % (36-48); LYMPHOCYTES % (AUTO) 34.5 % (21.0-51.0); MEAN CORPUSCULAR HEMOGLOBIN 30.6 pg (27.0-33.0); MEAN CORPUSCULAR HGB CONC 33.5 g/dL (32.0-36.0); MEAN CORPUSCULAR VOLUME 91.4 fL (79-99); NEUTROPHILS % (AUTO) 48.2 % (40.0-77.0); PLATELET COUNT (AUTO) 293 K/uL (130-400); RED BLOOD CELL COUNT(AUTO) 4.21 MIL/uL (4.00-5.50); RED CELL DISTRIBUTION WIDTH 12.5 % (11.0-15.5); WHITE BLOOD COUNT (AUTO) 6.6 K/uL (4.8-10.8)
[2019-10-22] MEDS: LEVOTHYROXINE 25 MCG TABLET PO SCH (06:08)
[2019-10-22 06:10] LABS: CREATININE 0.7 mg/dL (0.5-1.5)
[2019-10-22] MEDS: INSULIN HUMULIN R 100 UNIT/ML 3ML SQ SCH ×3 (06:16→16:38)
[2019-10-22] MEDS: POTASSIUM CHLORIDE 20 MEQ ERTAB PO PRN ×2 (06:25→13:31)
[2019-10-22 08:00] VITALS: BP 112/74
[2019-10-22] MEDS: CLOPIDOGREL BISULFATE 75 MG TAB PO SCH (08:37)
[2019-10-22] MEDS: APIXABAN 5 MG TABLET PO SCH (08:37)
[2019-10-22] MEDS: METOPROLOL TARTRATE 25 MG TAB PO SCH ×2 (08:37→13:30)
[2019-10-22] MEDS: FUROSEMIDE 10 MG/ML 2ML VIAL IV SCH ×2 (08:37→17:54)
[2019-10-22] MEDS: FAMOTIDINE 20MG TAB 20 MG TAB PO SCH (08:37)
[2019-10-22 11:15] VITALS: BP 100/66
[2019-10-22 15:13] VITALS: BP 92/55
[2019-10-22] MEDS ORDERED: APIX5TAB PO ×2 (15:46→15:48)
== END 2019-10-22 18:15 | disposition home or self-care (01) | DRG 175 ==
LOC: EDH 23:17 → EDHIP 10-19 02:30 → DAHIP 10-19 17:54
PROVIDERS: ADMIT Internal Medicine; ATTEND Internal Medicine
DX: I26.09 Other pulmonary embolism with acute cor pulmonale (principal); J96.01 Acute respiratory failure with hypoxia; J90 Pleural effusion, not elsewhere classified; Z68.41 Body mass index [BMI] 40.0-44.9, adult; J98.11 Atelectasis; I82.409 Acute embolism and thrombosis of unspecified deep veins of unspecified lower extremity; E87.6 Hypokalemia; E83.42 Hypomagnesemia; Z20.828 Contact with and (suspected) exposure to other viral communicable diseases; I25.10 Atherosclerotic heart disease of native coronary artery without angina pectoris; I10 Essential (primary) hypertension; E78.5 Hyperlipidemia, unspecified; E03.9 Hypothyroidism, unspecified; E11.43 Type 2 diabetes mellitus with diabetic autonomic (poly)neuropathy; K31.84 Gastroparesis; E66.01 Morbid (severe) obesity due to excess calories; I25.2 Old myocardial infarction; Z91.018 Allergy to other foods; Z88.6 Allergy status to analgesic agent; Z88.0 Allergy status to penicillin; Z88.8 Allergy status to other drugs, medicaments and biological substances; Z79.01 Long term (current) use of anticoagulants; Z79.4 Long term (current) use of insulin; Z79.02 Long term (current) use of antithrombotics/antiplatelets; Z95.1 Presence of aortocoronary bypass graft; Z83.3 Family history of diabetes mellitus; Z82.49 Family history of ischemic heart disease and other diseases of the circulatory system
CPT/HCPCS: 36415; 36600; 71045; 80048; 80053; 80305; 81003; 82550; 82728; 82803; 82948; 83036; 83605; 83615; 83690; 83735; 83874; 83880; 84132; 84145; 84484; 85025; 85378; 85610; 85730; 86140; 87426; 93005; 93306; 93970; G0378; J1650; J1815; J1940; J2405; Q9967; U0003

== ENCOUNTER 2019-12-16 11:18 | Emergency (ER) | payer OTHER ==
[~2019-12-16 11:18] MED LIST changes: +APIX5TAB PO; -ATOR20TA65 PO; -FURO20TA6 PO; +FURO40TA7 PO; -LEVO50 PO; -LEVO500T2 PO
[2019-12-16] MEDS ORDERED: ASPIRIN 325 MG TABLET ONE (11:37)
[2019-12-16 12:20] LABS: BASOPHILS % (AUTO) 0.6 % (0.0-5.0); EOSINOPHILS % (AUTO) 1.9 % (0.0-8.0); HEMATOCRIT 37.1 % (36-48); LYMPHOCYTES % (AUTO) 32.4 % (21.0-51.0); MEAN CORPUSCULAR HEMOGLOBIN 30.1 pg (27.0-33.0); MEAN CORPUSCULAR VOLUME 88.8 fL (79-99); MONOCYTES % (AUTO) 9.3 % (3.0-13.0); NEUTROPHILS % (AUTO) 55.6 % (40.0-77.0); PLATELET COUNT (AUTO) 404 K/uL (130-400); RED BLOOD CELL COUNT(AUTO) 4.18 MIL/uL (4.00-5.50); WHITE BLOOD COUNT (AUTO) 8.6 K/uL (4.8-10.8)
[2019-12-16 12:42] LABS: INR 0.93 (0.85-1.15); PROTHROMBIN TIME 10.1 SEC (9.6-11.6)
[2019-12-16 13:05] LABS: CREATININE 0.8 mg/dL (0.5-1.5); POTASSIUM 3.1 mmol/L (3.5-5.1)
[2019-12-16 13:08] LABS: ALBUMIN 3.5 g/dL (3.5-5.0); BILIRUBIN,TOTAL 0.4 mg/dL (0.2-1.0); TOTAL PROTEIN, SERUM 8.4 g/dL (6.0-8.3)
[2019-12-16] MEDS ORDERED: POTASSIUM CHLORIDE 20 MEQ ERTAB PO ONE (13:30)
[2019-12-16 13:39] LABS: MAGNESIUM 2.1 mg/dL (1.80-2.40); T4 (THYROXINE) 8.8 ug/dL (4.7-13.3); THYROID STIMULATING HORMONE 3.85 uIU/mL (0.36-3.74)
[2019-12-16] MEDS ORDERED: IOHEXOL-350 75 ML VIAL IV ONE (15:00)
== END 2019-12-16 16:35 | disposition home or self-care (01) ==
LOC: EDH 11:18
DX: R06.00 Dyspnea, unspecified (principal); R00.2 Palpitations; R42 Dizziness and giddiness; R07.89 Other chest pain; E11.9 Type 2 diabetes mellitus without complications; E78.5 Hyperlipidemia, unspecified; Z88.1 Allergy status to other antibiotic agents; Z88.6 Allergy status to analgesic agent; Z91.018 Allergy to other foods; Z79.899 Other long term (current) drug therapy; Z90.49 Acquired absence of other specified parts of digestive tract; Z87.891 Personal history of nicotine dependence; Z79.01 Long term (current) use of anticoagulants
CPT/HCPCS: 36415; 71045; 71275; 80053; 82550; 83735; 83880; 84436; 84443; 84484; 85025; 85378; 85610; 85730; 93005; 99285; Q9967

== ENCOUNTER → 2020-09-30 | Outpatient (CLI) | payer OTHER | END | disposition home or self-care (01) | LOC: RAH 14:22 | PROVIDERS: ATTEND Internal Medicine Cardiovascular Disease | DX: I51.7 Cardiomegaly (principal); R09.89 Other specified symptoms and signs involving the circulatory and respiratory systems | CPT/HCPCS: 71046; 78582; A9540; A9558 ==

== ENCOUNTER 2023-03-27 14:47 | Emergency (ER) | payer OTHER ==
[~2023-03-27 14:47] MED LIST changes: -ATOR40TA69 PO; +CLOP-31 PO; -CLOP75TA14 PO; +DEXA6TAB PO; -FAMO20TA8 PO; +FERS325 PO; +FURO40TA5 PO; -FURO40TA7 PO; -INSU3INS5 SQ; +LEVO50TA4 PO; +METO-408 PO; -METO25 PO; +PANT40GR PO; +ROSU20TA73 PO; +SPIR50TA PO; +VITAD50000 PO
== END 2023-03-27 17:00 | disposition left against medical advice (07) ==
LOC: EDH 14:47
DX: R51.9 Headache, unspecified (principal); Z53.21 Procedure and treatment not carried out due to patient leaving prior to being seen by health care provider